=== PATIENT | female | born 1985 | race Caucasian/White ===

== ENCOUNTER 2018-07-01 00:49 | Inpatient (IN) | payer OTHER ==
[2018-07-01] VITALS (7 sets, daily range): BP systolic 100–123; BP diastolic 56–86
[~2018-07-01] VITALS: Ht 165.1 cm; Wt 50.3 kg
[~2018-07-01 00:49] MED LIST: ACETAMINOPHEN325 M1 PO; ACETAMINOPHEN650 M5 PO; ATIVAN1 MG PO; DEPO-PROVE150 MG/1 M IM; EFFEXOR XR37.5 MG PO; EFFEXOR37.5 MG PO; K-DUR 20 MEQ T20 MEQ PO; METOCLOPRAMIDE; MIRALAX255 GM PO; NEURONTIN100 MG PO; NOHOMEMEDICATIONS; NORCO 5-325 TA1 EACH PO; PENICILLIN V P500 MG PO; PHENERGAN 25 MG25 M1 PO; POTASSIUM20 PO; PRENATAL PO; ULTRAM 50MG TAB50 MG PO; VISTARIL 25 MG25 M1 PO; VISTARIL PO; XANAX 0.25 MG0.25 MG; XANAX 1 MG TABLE1 MG PO; ZOFRAN; ZOFRAN ODT4 MG PO; ZOFRAN4 MG PO; ZOLOFT 50 MG TA50 M1 PO; ZOLOFT100 MG PO
[2018-07-01 01:03] LABS: BE(vivo) -1.2 mmol/L (-2 to +3); HCO3 22.2 mmol/L (22.0-26.0); PCO2 VENOUS 33.8 mmHg (41.0-51.0); PO2 VENOUS 27.1 mmHg (35.0-45.0)
[2018-07-01 01:43] LABS: ANION GAP 14 mmol/L (7-16); BUN 19 mg/dL (7-18); CALCIUM 9.1 mg/dL (8.5-10.1); CHLORIDE 105 mmol/L (98-107); CO2 23 mmol/L (21-32); CREATININE 1.1 mg/dL (0.6-1.0); GLUCOSE 113 mg/dL (74-106); POTASSIUM 3.1 mmol/L (3.5-5.1); SODIUM 142 mmol/L (136-145)
[2018-07-01 01:52] LABS: TROPONIN-I <0.06 ng/mL (<0.06)
[2018-07-01 07:24] LABS: BE(vivo) -2.8 mmol/L (-2 to +3); HCO3 20.9 mmol/L (22.0-26.0); PO2 VENOUS 206.4 mmHg (35.0-45.0)
--- NOTE | 2018-07-01 07:27 | NUR ---
Arrived from ER around 424. She is alert and oriented and no neuro changes. Maintained on NRB and 15L/HF. No respiratory distress. Report ot day RN. Will continue to monitor.
--- NOTE | 2018-07-01 08:20 | NUR ---
cm visited with pt at bedside, pt was up adlib in room. pt stated " i am not happy that my grandpa already dc right after he went to [facility] because we were told with his health history he and co2 was higher that than me, he needed to go there. he is staying with my cousin and they are going to seen my 7 year old son at [facility]. been told he is doing well too. hope can go home, if house is cleared out of carbon dioxide. we just got that generator to stay warm with no power. independent at home. no insurance, i am going to apply for medicaid again. i have had it in past. "/maryjane. active listen during visit. no anticipation needs, safe net packet provided. possible dc home today. passed on to bedside nurse that pt is wanting to go see other family members her as well.
--- NOTE | 2018-07-01 08:31 | EKG ---
[address] [place] [address] ELECTROCARDIOGRAM REPORT Name: KIET LANDRY Room #: 457-P ADM IN M.R.#: [id number] Admission: 07/01/18 Attend Phys: Aaron Grant MD Discharge: Date of : 87 Report #: [id number] THIS REPORT FOR: //name// [facility] ED Test Date: 2018-07-01 Test Time: 02:27:20 Pat Name: KIET LANDRY Department: Room: [facility] Gender: F [employer] Bike Mechanic: diana cho rn : 1985 Requested By: Pankaj Salgado Order Number: [id number] MD: Dung Mcleod Measurements Intervals [place] Rate: 83 P: 70 IA: 144 QRS: 78 QRSD: 97 T: 59 QT: 399 QTc: 469 Interpretive Statements Sinus rhythm ST elev, probable normal early repol pattern Compared to ECG 01/15/2014 21:34:45 ST (T wave) deviation now present Electronically Signed On 07-01-2018 8:31:00 RN IMAGING by Dung Mcleod [email or web address] <ELECTRONICALLY SIGNED> By: Dung Mcleod MD 07/01/18 0831 6 Dung Mcleod MD /PORTER
[2018-07-01] MEDS ORDERED: PANTOPRAZOLE SO40 M1 PO (09:57)
[2018-07-01 12:39] LABS: URINE BILIRUBIN NEGATIVE (Negative); URINE BLOOD 1+ (Negative); URINE CLARITY CLEAR; URINE COLOR YELLOW; URINE GLUCOSE-RANDOM* NEGATIVE (Negative); URINE KETONES TRACE (Negative); URINE PROTEIN (DIPSTICK) NEGATIVE (Negative); URINE SPECIFIC GRAVITY 1.025 (1.005-1.035)
[2018-07-01 12:40] LABS: URINE LEUKOCYTES NEGATIVE (Negative); URINE NITRITE NEGATIVE (Negative); URINE UROBILINOGEN 0.2 E.U./dl (0.2-1.0)
[2018-07-01 13:01] LABS: SQUAMOUS >10 Many /LPF (0-3)
[2018-07-01 13:03] LABS: CASTS None Seen /LPF (None Seen); CRYSTALS None Seen /LPF (None Seen); URINE RBC 0-2 Rare /HPF (0-2); URINE WBC 0-5 Rare /HPF (0-5)
[2018-07-01 13:04] LABS: BACTERIA 1-9 Few /HPF (None Seen)
--- NOTE | 2018-07-01 15:55 | NUR ---
PHYSICIAN INDICATED THAT PT IS NOT TO DISCHARGE HOME THIS DAY. PT SHOULD DISHCARGE HOME WITH NO NEEDS ONCE MEDICALLY STABLE. CM ABLE TO FOLLOW INDICATED WITH DC PLANNING SHOULD DC ARISE.
--- NOTE | 2018-07-01 18:42 | NUR ---
VSS-AFEBRILE. LUNGS CLEAR-ROOM AIR. DECLINED DC DUE TO ABDOMINAL PAIN RATED 10/10. THIS PAIN IS CHRONIC, AND HAPPENS DAILY WHEN PATIENT IS AT HOME. PARTIAL RELIEF NOTED WITH IV TORADOL AND PO NORCO FOR PAIN. ICE PACKS GIVEN PER PATIENTS REQUEST. OOB AD JOAN-STEADY ON FEET. CALLS APPROPRIATELY FOR ANY NEEDED ASSISTANCE.
[2018-07-02 02:47] VITALS: BP 89/53
[2018-07-02 05:57] LABS: CALCIUM 8.8 mg/dL (8.5-10.1); CREATININE 0.9 mg/dL (0.6-1.0); POTASSIUM 4.2 mmol/L (3.5-5.1)
[2018-07-02 08:09] VITALS: BP 89/45
[2018-07-02] MEDS ORDERED: TRAMADOL 50 MG50 MG PO (09:28)
--- NOTE | 2018-07-02 11:29 | NUR ---
PATIENT WITH COMPLAINTS OF NAUSEA AND ABD PAIN THIS AM. VOMITED MODERATE AMOUNT OF CLEAR LIQUID WITH JELLO IN IT. ZOFRAN GIVEN AND HAD COMPLETE RELIEF. CONTINUES TO HAVE INTERMITTENT CRAMPING ABD PAIN. TORADOL GIVEN AND HELPFUL. UP INDEPENDENTLY WITH STEADY GAIT. HYPO BOWELL SOUNDS. PATIENT STATED SHE HAS HAD THIS ABD PROBLEM SINCE SHE WAS 15 YRS OLD. WAS ABLE TO TAKE SOME CHICKEN BROTH AFTER ZOFRAN.
[2018-07-02 14:14] VITALS: BP 102/56
[2018-07-02 17:20] VITALS: BP 128/77
--- NOTE | 2018-07-02 20:06 | NUR ---
PATIENT NAUSEATED WITH ABD PAIN THIS MORNING. ZOFRAN AND FENTANYL HELPFUL. HAD ONE EMESIS. FELT MUCH BETTER THIS AFTERNOON. ABLE TO TOLERATE REGULAR DIET. NO FURTHER ABD PAIN. READY FOR DISCHARGE. DISCHARGED HOME IN STABLE CONDITION.
== END 2018-07-02 18:40 | disposition home or self-care (01) | DRG 918 ==
LOC: ER 00:49 → EROBS 01:32 → 4W 03:43
PROVIDERS: Emergency Medicine; Nurse Practitioner Family; ADMIT Hospitalist
DX: T58.8X1A Toxic effect of carbon monoxide from other source, accidental (unintentional), initial encounter (principal); F12.90 Cannabis use, unspecified, uncomplicated; F32.9 Major depressive disorder, single episode, unspecified; E87.6 Hypokalemia; F41.9 Anxiety disorder, unspecified; Z88.8 Allergy status to other drugs, medicaments and biological substances; Z88.6 Allergy status to analgesic agent; Y92.59 Other trade areas as the place of occurrence of the external cause; Z79.899 Other long term (current) drug therapy
CPT/HCPCS: 10047